=== PATIENT | female | born 2000 | race Caucasian/White ===

== ENCOUNTER 2019-05-22 13:25 | Emergency (ER) | payer BC ==
[~2019-05-22] VITALS: Ht 170.2 cm; Wt 68.5 kg
[2019-05-22 13:37] VITALS: BP 107/86; Ht 170.2 cm; Wt 68.5 kg
== END 2019-05-22 14:20 | disposition home or self-care (01) ==
LOC: ED 13:25
DX: J40 Bronchitis, not specified as acute or chronic (principal); Z88.0 Allergy status to penicillin
CPT/HCPCS: J1100